=== PATIENT | male | born 1955 | race Hispanic/Latino ===

== ENCOUNTER 2017-01-04 06:59 | Day surgery (SDC) | payer OTHER ==
[2017-01-04 07:39] VITALS: BMI 26.1
[2017-01-04 07:48] VITALS: RESP 19; TEMP 97.3
[2017-01-04] MEDS ORDERED: Lactated Ringer's 500 ML IV ONE (08:45)
[2017-01-04] MEDS ORDERED: Propofol 10 mg/ml Inj (20 ML) ONE ×2 (08:45)
[2017-01-04] MEDS ORDERED: Simethicone 40 mg/0.6 ml Liquid (30 ml) ONE (08:53)
[2017-01-04 10:04] VITALS: O2SAT 98
[2017-01-04 10:06] VITALS: BP 123/71; PULSE 66
== END 2017-01-04 09:55 | disposition home or self-care (01) ==
LOC: C.ENDO 06:59
PROVIDERS: ATTEND Internal Medicine Gastroenterology
DX: K57.30 Diverticulosis of large intestine without perforation or abscess without bleeding (principal); D12.0 Benign neoplasm of cecum; D12.4 Benign neoplasm of descending colon; D12.5 Benign neoplasm of sigmoid colon; D12.7 Benign neoplasm of rectosigmoid junction; K64.8 Other hemorrhoids
CPT/HCPCS: 45380; 88305; J2001; J2704; J7120